=== PATIENT | male | born 1970 | race Two or more races ===

== ENCOUNTER 2017-03-02 10:16 | Emergency (ER) | payer OTHER ==
[2017-03-02 10:30] VITALS: BP 119/78; PULSE 70; RESP 16; TEMP 97.9; O2SAT 95
--- NOTE | 2017-03-02 11:00 | EDPHY ---
H & P Time Seen by Provider: 03/02/17 10:45 HPI/ROS: This patient complains of a feeling of throat constriction over the past week that is causing air hunger. He explains that the symptoms worsened over the past 24 hours and prompted his visit. He is accompanied by his sister who provides translation is this patient is [place]-speaking only. He reports associated acid reflux symptoms described as a slight acid burning in his mouth when he is lying supine. The symptoms have been intermittent in the past more prominent over the past week. He denies any obvious dietary changes or other contributing factors. He has no other associated symptoms. ROS: No fevers or chills. No other constitutional symptoms. HEENT: No nasal congestion. No dysphonia. No drooling or stridor. He still tolerating p.o. intake. No significant odynophagia. His sister notes no evidence externally of neck swelling nor has the patient noticed any external swelling. Pulmonary: No cough. No wheeze. No pleuritic pain. When asked if he feels that his shortness of breath this coming from his lungs are from his throat he points to his throat describing this feeling of constriction. Cardiovascular: No chest pain. No heart palpitations. No lower extremity swelling. No diaphoresis. GI: No abdominal pain. No nausea or vomiting Integumentary: No skin rash Neuro: No complaints Psychiatric: Denies anxiety. 10 point ROS is otherwise negative Social History: Does not drink alcohol. Rare caffeine. No drug use Smoking Status: Never smoked Physical Exam: Physical Exam Vital signs are normal. General: No acute distress HEENT: Nose: Clear discharge bilaterally. No sinus tenderness to percussion. Ears: External canals and tympanic membranes are clear with no erythema or abnormal findings bilaterally. Oropharynx: No erythema or exudates. No dysphonia. No drooling or stridor. Eyes: Pupils equal and react to light. Extraocular motions are intact. Neck: Supple with no meningismus. No lymphadenopathy Lungs: Clear to auscultation bilaterally with no rales, rhonchi or wheeze. No respiratory distress. Cardiac: Regular rate and rhythm with no murmur gallop or rub Skin: No rash or pallor. Neuro: Alert with no focal deficits noted. Initial differential diagnosis: Strep throat, viral pharyngitis, acid reflux, laryngeal tumor Constitutional: Initial Vital Signs Temperature (C) 36.6 C 03/02/17 10:20 Heart Rate 70 03/02/17 10:20 Respiratory Rate 16 03/02/17 10:20 Blood Pressure 119/78 03/02/17 10:20 O2 Sat (%) 95 03/02/17 10:20 O2 Delivery Mode Room Air Allergies/Adverse Reactions: No Known Allergies Allergy (Unverified 03/02/17 10:30) Home Medications: Medication Instructions Recorded Pantoprazole Sodium [Protonix 40mg 40 mg PO DAILY #30 tab 03/02/17 (*)] MDM/Departure - [facility] ED Course/Re-evaluation: Rapid strep is negative. This patient's exam is normal. I suspect these having some acid reflux with armor pharyngeal symptoms related to this given his history. He has cardiac symptoms. I counseled regarding GERD and will start him on proton pump inhibitor. He will follow up with Ear Nose Throat specialist if he is not having relief of his symptoms. Also understands the need to return here for any worsening of the symptoms despite the treatment plan. - Depart Disposition: Home, Routine, Self-Care Clinical Impression: Throat fullness GERD (gastroesophageal reflux disease) Qualifiers: Esophagitis presence: without esophagitis Qualified Code(s): K21.9 - Gastro- esophageal reflux disease without esophagitis Condition: Good Instructions: Diet for Stomach Ulcers and Gastritis (ED), Gastroesophageal Reflux Disease (ED) Additional Instructions: Diagnosis: 1. Throat fullness 2. GERD - gastroesophageal reflux Plan: [place] diet until he feel improved 2 x 4 under the head of bed to prop that of the bed up slightly Protonix or Prilosec-40 mg a day Maalox in addition for discomfort if needed Tylenol for throat discomfort if needed Follow up with Ear Nose Throat specialist if her symptoms are not improving over the next 10 days or so with treatment plan. Return for any significant worsening despite the treatment plan Prescriptions: Pantoprazole Sodium [Protonix 40mg (*)] 40 mg PO DAILY #30 tab Referrals: NONE *PRIMARY CARE P,. [Primary Care Provider] - As per Instructions Massimo Mar MD [Medical Doctor] - As per Instructions
== END 2017-03-02 11:02 | disposition home or self-care (01) ==
LOC: CED 10:16
DX: R09.89 Other specified symptoms and signs involving the circulatory and respiratory systems (principal); K21.9 Gastro-esophageal reflux disease without esophagitis
CPT/HCPCS: 87880-PO